=== PATIENT | female | born 1995 | race Asian ===

== ENCOUNTER 2020-04-15 17:52 | Emergency (ER) | payer SELFPAY ==
[~2020-04-15] VITALS: Ht 157.5 cm; Wt 49.9 kg
[2020-04-15 17:55] VITALS: BP 136/84; Ht 157.5 cm; Wt 49.9 kg
== END 2020-04-15 18:46 | disposition home or self-care (01) ==
LOC: ED 17:52
DX: R05 Cough (principal); M79.10 Myalgia, unspecified site; R11.0 Nausea; Z20.828 Contact with and (suspected) exposure to other viral communicable diseases
CPT/HCPCS: U0003

== ENCOUNTER 2020-04-17 12:48 | Emergency (ER) | payer SELFPAY ==
[~2020-04-17] VITALS: Ht 157.5 cm; Wt 47.6 kg
[2020-04-17 12:49] VITALS: Ht 157.5 cm; Wt 47.6 kg
[2020-04-17 18:49] VITALS: BP 122/75
[2020-04-18] MEDS ORDERED: NORCO1 TA2 PO (07:55)
[2020-04-18] MEDS ORDERED: ZOF4 PO (07:55)
== END 2020-04-17 18:51 | disposition home or self-care (01) ==
LOC: ED 12:48
DX: R51.9 Headache, unspecified (principal); R11.10 Vomiting, unspecified
CPT/HCPCS: J1200; J1885; J2765; Q0162

== ENCOUNTER 2020-04-18 01:26 | Emergency (ER) | payer OTHER ==
[~2020-04-18] VITALS: Ht 157.5 cm; Wt 47.6 kg
[2020-04-18 01:27] VITALS: Ht 157.5 cm; Wt 47.6 kg
[2020-04-18 02:48] LABS: BASOPHIL % 0.3 % (0.2-1.3); PLATELET COUNT 242 x10^3mcL (179-408); RED CELL DISTRIBUTION WIDTH 12.8 % (12.3-17.7)
[2020-04-18 03:05] LABS: ALKALINE PHOSPHATASE 61 U/L (46-116); ALT/SGPT 23 U/L (14-59); AST/SGOT 15 U/L (15-37); BILIRUBIN TOTAL 0.33 mg/dL (0.20-1.00); CALCIUM 8.3 mg/dL (8.5-10.1); CARBON DIOXIDE 23.2 mmol/L (21-32); CHLORIDE SERUM 96 mmol/L (98-107); CREATININE SERUM 0.7 mg/dL (0.6-1.0); GFR1 > 60 mL/min; GLUCOSE SERUM 133 mg/dL (74-106); SODIUM SERUM 130 mmol/L (136-145); TOTAL PROTEIN, SERUM 6.9 g/dL (6.4-8.2)
[2020-04-18 03:09] LABS: ALBUMIN 3.2 g/dL (3.4-5.0)
[2020-04-18 03:10] LABS: POTASSIUM SERUM 2.9 mmol/L (3.5-5.1)
[2020-04-18 05:37] LABS: TOTAL PROTEIN CSF 109.9 mg/dL (15-45)
[2020-04-18 06:54] LABS: APPEARANCE CSF CLEAR; COLOR CSF COLORLESS; RBC CSF 4.4 /cumm (0); WBC CSF 26 /cumm (0-5)
[2020-04-18 06:55] LABS: LYMPHOCYTE CSF 69 % (40-80); MONOCYTE CSF 11 %
[2020-04-18] MEDS ORDERED: ZOF4 PO (07:55)
[2020-04-18] MEDS ORDERED: NORCO1 TA2 PO (07:55)
[2020-04-18 08:06] LABS: UA SPECIFIC GRAVITY >=1.030 (1.005-1.035); microscopic required? YES; urine erythrocyte 3+ (NEGATIVE)
[2020-04-18 11:49] LABS: COLOR CSF COLORLESS
[2020-04-18 11:50] LABS: APPEARANCE CSF CLEAR; LYMPHOCYTE CSF 70 % (40-80); MONOCYTE CSF 12 %; RBC CSF 4 /cumm (0); WBC CSF 31 /cumm (0-5)
[2020-04-18 14:19] VITALS: BP 102/63
== END 2020-04-18 14:19 | disposition home or self-care (01) ==
LOC: ED 01:26
PROVIDERS: Emergency Medicine
DX: B34.9 Viral infection, unspecified (principal); A87.9 Viral meningitis, unspecified; E87.6 Hypokalemia; R31.9 Hematuria, unspecified; Z20.828 Contact with and (suspected) exposure to other viral communicable diseases
CPT/HCPCS: 87804; J0696; J1885; J2270; J2405; J7030; J7060